=== PATIENT | male | born 1970 | race Caucasian/White ===

== ENCOUNTER 2021-05-29 19:16 | Observation (INO) | payer OTHER ==
[~2021-05-29] VITALS: Ht 185.4 cm; Wt 135.5 kg
[~2021-05-29 19:16] MED LIST: ASPIRIN 32325 MG/TAB PO; CARDENE 20MG CA20 M1 PO; CATAPRES 0.1MG0.1 MG PO; INDERAL 20MG20 MG PO; NITROSTAT0.4 MG/TAB SL; NORVASC 5MG5 MG/TAB PO; PRAVACHOL 20MG20 MG PO
[2021-05-29 19:45] LABS: BASO % 0.3 % (0.0-2.0); EOS # 0.1 K/mm3 (0.0-0.7); GRAN # 9.3 K/mm3 (1.4-6.5); GRAN % 85.9 % (42.2-75.2); HEMOGLOBIN 11.8 g/dl (13.5-18.0); LYMPH # 0.5 K/mm3 (1.2-3.4); LYMPH % 4.7 % (20.0-51.0); MEAN CELL VOLUME 84 fl (80.0-100.0); MEAN CORPUSCULAR HEMOGLOBIN 29 pg (27-31); MEAN CORPUSCULAR HGB CONC 34 g/dl (33.0-37.0); MEAN PLATELET VOLUME 9.7 fl (7.4-10.4); MONO # 0.8 K/mm3 (0.1-0.6); MONO % 7.7 % (1.7-9.3); PLATELET COUNT 309 K/mm3 (130-400); RED BLOOD COUNT 4.12 M/mm3 (4.20-5.60); REDCELL DISTRIBUTION WIDTH-CV 13.3 % (11.5-14.5)
[2021-05-29 19:46] LABS: HEMATOCRIT 34.5 % (42.0-52.0)
[2021-05-29 19:59] LABS: ALBUMIN 3.8 gm/dL (3.5-5.0); BILIRUBIN,TOTAL 3.3 mg/dL (0.2-1.2); C-REACTIVE PROTEIN 27.87 mg/dL (0.00-0.50); CALCIUM 9.1 mg/dL (8.4-10.2); CREATININE, serum 1.21 mg/dL (0.72-1.25); POTASSIUM 3.3 mmol/L (3.5-4.5)
[2021-05-29 20:08] LABS: ERYTHROCYTE SEDIMENTATION RATE 75 mm/hr (0-30)
[2021-05-29] MEDS ORDERED: HYDRODIURIL50 MG PO (20:14)
[2021-05-29] MEDS ORDERED: LIPITOR 10MG10 MG (20:14)
[2021-05-29] MEDS ORDERED: TOPROL XL 25MG25 MG (20:15)
[2021-05-29] MEDS ORDERED: K-DUR20 MEQ PO (20:16)
[2021-05-29] MEDS ORDERED: PERCOCET 325 MG1 TA3 PO (20:17)
[2021-05-29 22:06] LABS: SYNOVIAL FL. MONONUCLEAR 7.8 % (0-75)
[2021-05-29 22:15] LABS: SYNOVIAL FLUID RBC 180000 /mm3 (0-0); SYNOVIAL FLUID WBC 93990 /mm3 (200-600)
[2021-05-29 22:17] LABS: SYNOVIAL FLUID APPEARANCE BLOODY; SYNOVIAL FLUID COLOR RED
[2021-05-29 23:00] VITALS: BP 119/59; PULSE 90
[2021-05-29 23:15] VITALS: BP 131/76; PULSE 92
[2021-05-29 23:30] VITALS: BP 124/56; PULSE 88
[2021-05-29 23:45] VITALS: BP 129/69; PULSE 89
[2021-05-30] VITALS (10 sets, daily range): BP systolic 112–136; BP diastolic 55–69; PULSE 82–98; TEMP 97.6–99.1
--- NOTE | 2021-05-30 00:35 | NUR ---
Received report from PACU. Patient brought to floor at 2255. Assessment performed. Intake completed. Patient complains of pain 6/10. Pain medication administered. Post op vitals taken. Will continue to monitor.
--- NOTE | 2021-05-30 07:41 | NUR ---
Vancomycin Initial Dosing Pharmacy Note Ordering provider: Rebecca Esteban J., DO Indication/duration: bone/joint infection, 7 days LABS: SCr 1.21, CrCl~92, GFR 63 Recommendation: Will give Vancomycin 2 gm IV x1 loading dose, then Vancomycin 1.5 gm IV q12h. Pharmacy will continue to closely monitor and check a trough prior to the 4th dose. Loading dose: 2 grams Maintenance dose: 1.5 grams every 12 hours Trough goal: 15-20 ug/mL
--- NOTE | 2021-05-30 07:55 | NUR ---
PT. ASSESSMENT COMPLETE. PT A&O X4, SITTING UP IN BED WITH FAMILY BY BEDSIDE. LEEFT KNEE IS WRAPPED IN AN AMY BANDAGE WITH ICE. PT. COMPLAINS OF PAIN OF 1/10 WITHOUT MOVEMENT. MOVEMENT CAUSES PAIN OF 7/10. IV IS PATENT IN RIGHT FOREARM WITH LR FLOWING TO GRAVITY. ICE WAS REFRESHED AND PUDDING PROVIDED. NO FURTHER NEEDS AT THIS TIME. CALL LIGHT WITHIN REACH.
--- NOTE | 2021-05-30 12:54 | NUR ---
Electrotyper met with patient to discuss discharge planning. Patient lives in [place] with his , Tessie (ph#[phone]) and sees Dr. Chung for primary care. Patient obtains medications from either [facility] or [facility] in [place] with no difficulties. Patient is using crutches at this time, but does not normally use them. Patient is independent with ADLS and plans to return home at time of discharge. Patient does not have Advance Directives and is not interested in completing DPOA-HC at this time. Discharge Plan: Home
--- NOTE | 2021-05-30 13:57 | NUR ---
First visit from the rivet maker. No needs right now.
--- NOTE | 2021-05-30 18:31 | NUR ---
PT. SPENT A QUITE AFTERNOON RESTING AND PARTICIPATING IN PHYSICAL THERAPY. PAIN IS MANAGED USING ROXYCODONE AND TYLENOL. PT. REFUSED DINNER. NO FURTHER NEEDS AT THIS TIME. CALL LIGHT WITHIN REACH.
[2021-05-31 00:10] VITALS: BP 134/69; PULSE 86; TEMP 97.7
[2021-05-31 03:34] VITALS: BP 119/69; PULSE 77; TEMP 98.7
--- NOTE | 2021-05-31 07:38 | NUR ---
CALLED [facility] ABOUT PICC PLACEMENT ORDERS. PICC TO BE PLACED TODAY.
--- NOTE | 2021-05-31 08:02 | NUR ---
Assessment complete. Pt. A&O x4. Pt. was awake apon entering the room. Ice pack on left knee. Pt. complaining of some pain in left thigh and asked for some heat. Heating pad provided. Pt. denied being hungry. No further needs at this time. Call light within reach.
[2021-05-31 08:04] VITALS: BP 120/59; PULSE 79; TEMP 98.4
--- NOTE | 2021-05-31 10:50 | NUR ---
[facility] AT BEDSIDE TO PLACE PICC LINE.
[2021-05-31 11:36] VITALS: BP 124/62; PULSE 83; TEMP 98.5
--- NOTE | 2021-05-31 12:00 | NUR ---
I.D. CALLED AND GAVE ANTIBIOTIC RECS, SEE ORDERS. HYDRO GENERATION MANAGER WORKING ON ARRANGING HOME HEALTH AND GETTING ANTIBIOTICS ORDERED AND SHIPPED TO PATIENT'S HOME TOMORROW. NOTIFIED. AWAITING ORTHO TO ROUND. FAMILY UPDATED. PLAN IS FOR PATIENT TO GET IV ABX HERE TOMORROW AM AND THEN DC HOME WHERE ANTIBIOTICS WILL BE SHIPPED DIRECTLY TO HIM.
--- NOTE | 2021-05-31 14:45 | NUR ---
Contacted by patient via phone due to complaints of discomfort at PICC insertion site. Had an extensive conversation with both patient and his daughter at the bedside in regard to PICC placement procedure. Patient reported he feels something pulling. Surface pain is located under the stat lock and not at the insertion site. Points to StatLock when asked where pain is located. Sterile dressing change performed with PICC insertion site cleansed with chlor prep x1, chlorhexidine impregnated disc applied, skin prep, StatLock, and Tegaderm applied. Patient reported that his PICC dressing feels better now. Applied warm moist pack. Advised patient to continue with warm moist pack for discomfort over the weekend. To contact his physician about taking an anti-inflammatory. To seek treatment for discomfort and emergency department this weekend, if needed. To contact me on Thursday. Patient and his daughter both voiced understanding of instructions. After heat applied and dressing change done, patient reportes "it feels better." Will continue to monitor with a phone call on Thursday. Both patient and daughter voiced understaing of instructions.
[2021-05-31 15:35] VITALS: BP 132/63; PULSE 85; TEMP 98.4
--- NOTE | 2021-05-31 15:43 | NUR ---
Rubber Belt Splicer was notified that patient will require IV antibiotics at discharge. Recommendation is for Ancef every 8 hours for three weeks. SW met with patient and patient's daughter, Karyna to discuss discharge planning. Patient would like to do IV antibiotics at home. Patient lives with his and his daughter, Karyna who is an aide at the hospital. Patient advised his sister, who also lives in [place], is a nurse practitioner. Patient would be agreeable to have Home Health services with any agency that takes his insurance. SW gave referral to [facility] and [facility]. [facility] does not have nursing availability over the weekend and [facility] does not accept patient's insurance. JUANIS then contacted [facility] and faxed referral. Karine at [facility] advised they can accept patient. JUANIS contacted Sue at [facility] and faxed referral for IV antibiotics. Sue advised they are not in network with patient's insurance. JUANIS then contacted Harsh at [facility] and faxed referral with order for Ancef. Harsh advised they will have Ancef sent via [employer] today, to arrive by tomorrow by end of day. JUANIS met with patient and daughter to provide the above update. Patient to discharge tomorrow. Discharge Plan: Home with IV antibiotics and [facility]
[2021-05-31 20:40] VITALS: BP 128/70; PULSE 85; TEMP 99.8
--- NOTE | 2021-05-31 21:07 | NUR ---
PT REPORTS LEFT KNEE PAIN, 07/19. MEDICATED WITH OXYCODONE 10MG PO AT THIS TIME. ICE PACK REPLACED. HAS SENSITIVE SINGLE LUMEN PICC TO RT UPPER ARM. LEFT LEG ELEVATED ON 2 PILLOWS, DRSG D/I. IS ALERT AND ORIENTED X4. FAMILY AT BEDSIDE.
--- NOTE | 2021-06-01 00:08 | NUR ---
SPOKE WITH CRISS FROM [facility] REGARDING PTS COMPLAINT OF LEFT KNEE PAIN. ONE TIME DOSE OF TORADOL 30MG IV ORDER GIVEN.
--- NOTE | 2021-06-01 00:30 | NUR ---
MEDICATED WITH TORADOL 30MG IV AND OXYCODONE 10MG PO AT THIS TIME.
[2021-06-01 00:49] VITALS: BP 132/68; PULSE 94; TEMP 99.1
--- NOTE | 2021-06-01 04:00 | NUR ---
PT REPORTS RESTING AFTER "COCKTAIL" OF TORADOL AND OXYCODONE.
[2021-06-01 04:35] VITALS: BP 100/55; PULSE 83; TEMP 97.6
--- NOTE | 2021-06-01 05:10 | NUR ---
OXYCODONE 10MG PO FOR LEFT KNEE PAIN. UP INDEPENDENTLY IN ROOM WITH WALKER.
[2021-06-01 07:59] VITALS: BP 114/64; PULSE 81; TEMP 98.3
--- NOTE | 2021-06-01 10:56 | NUR ---
This Hearing Aid Repair Technician is notified that patient is ready to discharge to home, and his daughter is at bedside to transport him. This Hearing Aid Repair Technician followed p with Tsering ADAMS at [facility] and confirms plan of care; discharge orders and clinical updates faxed. This Hearing Aid Repair Technician contacted [facility] and confirmed with Mayank that IV infusion is coordinated with anticipated delivery today at 4:30 pm. This Hearing Aid Repair Technician updates RN and hospitalist. *Discharge plan: to home with [facility] and [facility] services*
--- NOTE | 2021-06-01 11:00 | NUR ---
Patient ready to get home today. I spoke with Tsering at [facility], her questions were answered & paperwork faxed. I also spoke with social work who reports things were set up for discharge. Picc cares given to patient education given to patient and his daughter. They feel good about Picc line, infection prevention stressed. Supplies provided for left knee dressing change per orders. Called and clarified with Mina Orellana and patient to wait to shower knee or get wet until follow up with Dr. Esteban. Patient to call Thursday to confirn follow up appt time. [facility] pharmacy called & script for Meloxicam ready, new medication for patient stressed to not take until tmrw since he has has tordol & no other Nsaids to be taken. Patient denies any other questions or concerns. Patient wheeled out with all belongings, his daughter taking him home.
== END 2021-06-01 11:46 | disposition home health service (06) ==
LOC: COL.ER 19:16 → SURG 19:39
PROVIDERS: Emergency Medicine; ADMIT Orthopaedic Surgery
DX: M00.062 Staphylococcal arthritis, left knee (principal); B95.61 Methicillin susceptible Staphylococcus aureus infection as the cause of diseases classified elsewhere; M23.42 Loose body in knee, left knee; M25.062 Hemarthrosis, left knee; Z20.822 Contact with and (suspected) exposure to COVID-19; Z79.82 Long term (current) use of aspirin
CPT/HCPCS: C1751; G0378; J0690; J0696; J1100; J1885; J2270; J2405; J2704; J3010; J3370; J7040; J7050

== ENCOUNTER 2021-06-26 10:40 | Outpatient (CLI) | payer OTHER ==
[~2021-06-26] VITALS: Ht 185.4 cm; Wt 127.1 kg
[~2021-06-26 10:40] MED LIST changes: +HYDRODIURIL50 MG PO; +K-DUR20 MEQ PO; +LIPITOR 10MG10 MG; +PERCOCET 325 MG1 TA3 PO; +TOPROL XL 25MG25 MG
[2021-06-26] MEDS ORDERED: MOBIC15 MG (11:07)
[2021-06-26 11:13] VITALS: BP 119/72; PULSE 90; TEMP 98.1
--- NOTE | 2021-06-26 13:30 | NUR ---
Received a phone call from the patient in regard to his PICC. He feels it is not working right. sometimes there is a blood return and sometimes not. Advised patient to come to the express unit for a PICC evaluation. Patient's right upper PICC is intact. PICC flushed with 10 mL normal saline with good blood return noted without resistance. There is a questionable slight kink right below the hub on the extension set. Sterile dressing change performed with insertion site cleansed with ChloraPrep x1, chlorhexidine impregnated disc applied, skin prep, StatLock, and Tegaderm applied. No other signs or symptoms of IV complications noted. Express unit card given to patient. May contact the express unit for PICC removal when needed. All other concerns addressed. Arm wrapped with an Miles to protect catheter. May contact advanced IV services for any comments question, and/or concerns. Patient voiced understanding of instructions.
== END 2021-06-26 13:38 ==
LOC: EUO 10:40
DX: Z45.2 Encounter for adjustment and management of vascular access device (principal)

== ENCOUNTER 2021-07-06 08:40 | Outpatient (CLI) | payer OTHER ==
[~2021-07-06] VITALS: Ht 185.4 cm; Wt 124.0 kg
[~2021-07-06 08:40] MED LIST changes: +MOBIC15 MG
[2021-07-06 09:52] VITALS: BP 105/78; PULSE 86; TEMP 98.7
== END 2021-07-06 12:12 | disposition home or self-care (01) ==
LOC: EUO 08:40
DX: M00.062 Staphylococcal arthritis, left knee (principal)

== ENCOUNTER → 2021-07-09 | Outpatient (CLI) | payer OTHER | LOC: ZCOL.LAB 15:31 | DX: Z11.9 Encounter for screening for infectious and parasitic diseases, unspecified (principal) ==